=== PATIENT | female | born 1990 | race Caucasian/White ===

== ENCOUNTER → 2016-12-01 | Outpatient (CLI) | payer OTHER ==
[2016-12-01 17:27] LABS: HEMATOCRIT 37.6 % (37.0-47.0); HEMOGLOBIN 11.7 g/dL (12.5-16.0); MEAN PLATELET VOLUME 10.2 fl (7.4-10.4); RED BLOOD COUNT 4.31 M/mm3 (4.10-5.30); RED CELL DISTRIBUTION WIDTH 16.7 % (11.5-14.5); WHITE BLOOD COUNT 10.6 K/mm3 (4.8-10.8)
[2016-12-01 17:51] LABS: ALBUMIN 4.5 g/dL (3.5-5.0); BUN/CREATININE RATIO 25.5 (6.0-26.0); CALCIUM 9.5 mg/dL (8.4-10.2); POTASSIUM 3.9 mmol/L (3.6-5.0); TOTAL BILIRUBIN 0.2 mg/dL (0.2-1.3); TOTAL PROTEIN 7.8 g/dL (6.3-8.2)
== END ==
LOC: LAB 17:01
PROVIDERS: Family Medicine
DX: R42 Dizziness and giddiness (principal); R53.83 Other fatigue; N91.2 Amenorrhea, unspecified

== ENCOUNTER → 2017-11-25 | Outpatient (CLI) | payer OTHER | LOC: RAD 12:10 | DX: R50.9 Fever, unspecified (principal); R06.02 Shortness of breath; R05 Cough ==

== ENCOUNTER 2020-09-11 12:17 | Emergency (ER) | payer SELFPAY ==
[2020-09-11 13:18] LABS: BASO # 0.04 (0.02-0.10); EOS # 0.02 (0.04-0.40); EOS % 0.1 % (1.0-5.0); HEMATOCRIT 38.6 % (37.0-47.0); LYMPH# 2.68 (1.50-4.00); MEAN CELL VOLUME 85 fl (78-100); MEAN CORPUSCULAR HEMOGLOBIN 26 pg (27-31); MEAN CORPUSCULAR HGB CONC 31 g/dL (33-37); MEAN PLATELET VOLUME 9.8 fl (7.4-10.4); MONO # 0.78 (0.20-0.80); NEU # 12.01 (1.40-6.50); RED BLOOD COUNT 4.57 M/mm3 (4.10-5.30); RED CELL DISTRIBUTION WIDTH 15.6 % (11.5-14.5); WHITE BLOOD COUNT 15.6 K/mm3 (4.8-10.8)
[2020-09-11 13:28] LABS: POTASSIUM 3.2 mmol/L (3.5-5.1)
[2020-09-11 13:30] LABS: CALCIUM 9.5 mg/dL (8.3-10.5)
[2020-09-11 13:48] LABS: PLATELET COUNT 521 K/mm3 (130-400)
[2020-09-11 14:43] LABS: URINE APPEARANCE HAZY; URINE BILIRUBIN NEGATIVE (NEGATIVE); URINE BLOOD TRACE (NEGATIVE); URINE COLOR YELLOW; URINE GLUCOSE NEGATIVE (NEGATIVE); URINE KETONE 2+ (NEGATIVE); URINE LEUKOCYTE ESTERASE NEGATIVE (NEGATIVE); URINE NITRATE NEGATIVE (NEGATIVE); URINE PROTEIN(semi-quant) 1+ mg/dL (NEGATIVE); URINE UROBILINOGEN NORMAL (NORMAL)
[2020-09-11 14:44] LABS: URINE MUCUS PRESENT (NOT PRESENT)
[2020-09-11] MEDS ORDERED: PHENERGAN 25 TA25 MG PO (15:46)
[2020-09-11 15:54] VITALS: BP 168/112
== END 2020-09-11 15:56 | disposition home or self-care (01) ==
LOC: ED 12:17
PROVIDERS: Nurse Practitioner
DX: R51.9 Headache, unspecified (principal); R11.2 Nausea with vomiting, unspecified; D72.829 Elevated white blood cell count, unspecified
CPT/HCPCS: J1885; J7030

== ENCOUNTER → 2020-09-19 | Outpatient (CLI) | payer SELFPAY ==
[~2020-09-19] MED LIST: PHENERGAN 25 TA25 MG PO
== END ==
LOC: RAD 07:58 → LAB 07:58 → RAD 08:00
DX: K83.9 Disease of biliary tract, unspecified (principal); K80.50 Calculus of bile duct without cholangitis or cholecystitis without obstruction

== ENCOUNTER → 2020-10-16 | Day surgery (SDC) | payer SELFPAY | LOC: MSO 07:32 | DX: K92.0 Hematemesis (principal); K21.9 Gastro-esophageal reflux disease without esophagitis; K82.9 Disease of gallbladder, unspecified; K59.00 Constipation, unspecified; K83.8 Other specified diseases of biliary tract; Z79.899 Other long term (current) drug therapy | CPT/HCPCS: 00731; J2704; J7120 ==